=== PATIENT | female | born 1945 | race Caucasian/White ===

== ENCOUNTER 2020-10-14 16:54 | Emergency (ER) | payer MEDICARE, SELFPAY ==
[2020-10-14 17:15] VITALS: BP 210/86; PULSE 73; RESP 16; TEMP 37.3; O2SAT 100; BMI 21.2
--- NOTE | 2020-10-14 18:32 | ED_ITS ---
HPI - Extremity Injury (Upper) General Chief Complaint: Extremity Injury, Upper Stated Complaint: fell-left elbow scrape/lesion/hurt ribs/hip Time Seen by Provider: 10/14/20 17:21 Source: patient Mode of arrival: Ambulatory Limitations: no limitations History of Present Illness HPI narrative: 74-year-old woman with a history of hypertension, currently anticoagulated on Eliquis was walking at [facility], stumbled on the edge of the road and fell landing on her left elbow. She has a skin tear but no deeper injury is apparent. She has no tenderness with full range of motion at the elbow. No tenderness at the upper arm or wrist. Did not hit her head and has no complaints of hip or leg pain. She was able to get up off the ground and is simply requesting help in cleaning up the wound and wondering if antibiotics are required. Related Data Allergies Allergy/AdvReac Type Severity Reaction Status Date / Time No Known Drug Allergies Allergy Verified 10/14/20 17:19 Review of Systems Review of Systems Narrative: No headache, loss of consciousness, dizziness, palpitations, chest pain, dyspnea, abdominal pain, fevers Remainder of complete review of systems is otherwise unremarkable except for that included in the HPI. Patient History Medical History Atrial fibrillation Hypertension Social History Smoking Status: Never smoker Smoking Status: Never smoker Substance Use Type: does not use Exam Narrative Exam Narrative: General: Healthy appearing, in no acute distress. Able to give a complete and coherent history. Well-nourished well-developed Neck: No JVD, supple Respiratory: Lungs are clear to auscultation, no wheezing no rales no rhonchi. Full and symmetrical air movement Cardiac: Irregular rhythm no murmurs no bruits Pelvis: No tenderness with pelvic ring manipulation, no hip pain or tenderness Skin: Warm and dry, skin tear over the left elbow without significant underlying tissue injury Neurologic: Grossly neurologically intact with no obvious asymmetries or abnormalities Extremities: No trauma, well perfused Psych: Cooperative, appropriate insight and affect Initial Vital Signs Initial Vital Signs: Vital Signs Temperature 99.1 F 10/14/20 17:15 Pulse Rate 73 10/14/20 17:15 Respiratory Rate 16 10/14/20 17:15 Blood Pressure 210/86 H 10/14/20 17:15 Pulse Oximetry 100 10/14/20 17:15 Course Vital Signs Vital signs: Vital Signs - 8 hr 10/14/20 17:15 Temperature 99.1 F Pulse Rate 73 Respiratory Rate 16 Blood Pressure 210/86 H Pulse Oximetry 100 MDM - Extremity Injury (Upper) MDM Narrative Medical decision making narrative: 74-year-old woman had a minor fall suffering a left elbow skin tear with no other trauma. No medical complications to explain fall. The wound is cleaned and the skin tear is reapproximated with Steri-Strips. She is safe for home discharge Discharge Plan Departure Patient Disposition: Home Clinical Impression: Skin tear of elbow without complication Qualifiers: Encounter type: initial encounter Laterality: left Qualified Code(s): S51.012A - Laceration without foreign body of left elbow, initial encounter Fall Qualifiers: Encounter type: initial encounter Qualified Code(s): W19.XXXA - Unspecified fall, initial encounter Instructions: DI for Abrasion Activity Restrictions/Additional Instructions: Thank you for coming in today The skin tear to your elbow was cleaned and Steri-Strips were used to reapproximate the skin edges. Please leave the Steri-Strips in place as long as they stay in place. The skin likely will eventually peel off however it is currently acting as a ?biologic Band-Aid? so that the wound itself will heal completely. It is okay to wash the area and simply patted dry. You can use antibiotic ointment on top of the Steri-Strips and a dressing on top of that if you would like. I am glad the review worse injuries and I hope you are able to enjoy the rest of your visit to [place].
== END 2020-10-14 18:45 | disposition home or self-care (01) ==
PROVIDERS: Emergency Provider Emergency Medicine
DX: S51.012A Laceration without foreign body of left elbow, initial encounter (principal); W19.XXXA Unspecified fall, initial encounter
CPT/HCPCS: 99281